=== PATIENT | female | born 1995 | race Caucasian/White ===

== ENCOUNTER 2017-07-30 11:06 | Day surgery (SDC) | payer OTHER ==
[~2017-07-30 11:06] MED LIST: Buffered Lidocaine 0.9% SYRIN* 5 ML/SYR SYRINGE INTRADERM ONE
[2017-07-30] MEDS ORDERED: ceFAZolin 2 GM PREMIX (*) 2 GM/50 ML BAG IVPB ONE (11:27)
[2017-07-30] MEDS ORDERED: Buffered Lidocaine 0.9% SYRIN* 5 ML/SYR SYRINGE ONE (11:27)
[2017-07-30] MEDS ORDERED: fentaNYL* 50 MCG/ML 2 ML VIAL (100 MCG VIAL) ONE (11:52)
[2017-07-30] MEDS ORDERED: Propofol* 10 MG/ML 20 ML BTL IV PUSH ONE ×3 (11:52→13:59)
[2017-07-30] MEDS ORDERED: Midazolam* 1 MG/ML 2 ML VIAL (2 MG) ONE ×2 (11:52→13:59)
[2017-07-30] MEDS ORDERED: Lidocaine 2% PF * 5 ML VIAL ONE (11:52)
[2017-07-30] MEDS ORDERED: Ondansetron INJ* 2 MG/ML VIAL ONE (11:53)
[2017-07-30] MEDS ORDERED: Ketorolac INJ* 30 MG/ML 1 ML VIAL ONE (11:53)
[2017-07-30] MEDS ORDERED: HYDROmorphone INJ* 1 MG/ML CARPUJECT SYRINGE IV PRN (12:43)
[2017-07-30] MEDS ORDERED: fentaNYL* 50 MCG/ML 2 ML VIAL (100 MCG VIAL) IV PRN (12:43)
[2017-07-30] MEDS ORDERED: Ibuprofen TAB* 400 MG PO PRN (12:43)
[2017-07-30] MEDS ORDERED: oxyCODONE/Acetamin 5/325 MG* TAB PO PRN ×2 (12:43→14:35)
[2017-07-30] MEDS ORDERED: Ondansetron INJ* 2 MG/ML VIAL IV PRN (12:43)
[2017-07-30] MEDS ORDERED: PROCHLORPERAZINE INJ 5 MG/ML 2 ML VIAL IV PRN (12:43)
[2017-07-30] MEDS ORDERED: Scopolamine 1.5 mg* PATCH TRANSDERM PRN (12:43)
[2017-07-30] MEDS ORDERED: oxyCODONE TAB* 5 MG TAB PO PRN (12:43)
[2017-07-30] MEDS ORDERED: Bupivacaine 0.5% SDV PF* 30 ML VIAL ONE (12:52)
[2017-07-30] MEDS ORDERED: Lidocaine 1% MPF wEPI 200,000* 30 ML SDV ONE (12:52)
[2017-07-30 15:50] VITALS: BP 94/69
--- NOTE | 2017-07-31 06:32 | OP ---
CC: [facility] * DATE OF OPERATION: 07/30/17 - [facility] DATE OF : 89 SURGEON: Alexis Smith MD [employer]ATION TACTICAL READINESS OFFICER: OSCAR Aguilar ANESTHESIOLOGIST: Dr. Camacho. ANESTHESIA: Local with monitored anesthesia care. PRE-OP DIAGNOSIS: Incarcerated right femoral hernia. POST-OP DIAGNOSIS: Incarcerated right femoral hernia. OPERATIVE PROCEDURE: Open repair with mesh of incarcerated right femoral hernia. ESTIMATED BLOOD LOSS: Minimal. WOUND CLASSIFICATION: I. COMPLICATIONS: None. DRAINS: None. SPECIMENS: None. BRIEF HISTORY: Ms. 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 An ultrasound confirmed this to be a fluid-filled sac and not a lymph node and her history and physical exam were consistent with a femoral hernia and she is now to undergo an elective repair as this is causing her discomfort and also to prevent future complication. DESCRIPTION OF PROCEDURE: Written informed consent was obtained, the right groin was marked with indelible ink and preoperative antibiotics were administered. The patient was taken to the operating room and placed in the supine position. Sequential compression devices and a warming blanket were applied. The right groin and lower abdomen and upper thigh were prepped and draped in the usual sterile fashion. Time-out verification was completed. Initially a mixture of 0.5% Marcaine and 1% lidocaine was infiltrated just above the right groin crease medial to the femoral vessels and an oblique incision of about 2.5 cm was made, carried down through the subcutaneous tissue. Here we encountered a fluid filled hernia sac, which we were able to separate down from the rounding fat and lymph node tissue to the femoral triangle just below the reflection of the external oblique aponeurosis in the location expected of a femoral hernia. I was able to dissect this down to the neck, and with some persistent pressure, I was able to reduce the hernia with the sac back up through the femoral canal. The canal was approximately 8 to 9 mm in size/diameter, easily probed with a Amarilys clamp. Next, a 2.5 to 3 cm piece of microfilament polypropylene mesh was then rolled up into a cigarette type drain and sutured together. Its diameter was approximately 6 to 7 mm. This was then placed up into the femoral canal, which obliterated the space nicely and was placed just up underneath the external oblique aponeurosis reflection. The mesh was sutured with 2 separate 3-0 Polysorb sutures to the external oblique aponeurosis to secure this. Hemostasis was assured. The mesh was in good position. The wound was closed in layers with 3-0 and 4-0 Vicryl suture. Steri-Strips and sterile dressings were applied. The patient tolerated the procedure well, was taken to the recovery room in stable condition. [id number] #: [id number] JOSE
[2017-08-02] MEDS ORDERED: Scopolamine PATCH Remove* 1 NOTE MISC PATCH OFF ONE (12:45)
== END 2017-07-30 15:52 | disposition home or self-care (01) ==
LOC: OR 11:06
PROVIDERS: ATTEND Surgery
DX: K41.30 Unilateral femoral hernia, with obstruction, without gangrene, not specified as recurrent (principal); F50.00 Anorexia nervosa, unspecified; K21.9 Gastro-esophageal reflux disease without esophagitis; K59.00 Constipation, unspecified; K30 Functional dyspepsia; R11.2 Nausea with vomiting, unspecified; R51 Headache; M79.1 Myalgia; F32.9 Major depressive disorder, single episode, unspecified
CPT/HCPCS: 81025; C1781; J0690; J1885; J2001; J2250; J2405; J2704; J3010